=== PATIENT | female | born 1980 | race Caucasian/White ===

== ENCOUNTER → 2017-01-04 | Outpatient (CLI) | payer OTHER ==
[~2017-01-04] MED LIST: AMOX875T PO; DULO-24 PO; TPM/50 PO
== END | disposition home or self-care (01) ==
LOC: C.RDSM 08:00
PROVIDERS: ATTEND Orthopaedic Surgery Sports Medicine
DX: Z09 Encounter for follow-up examination after completed treatment for conditions other than malignant neoplasm (principal); M25.521 Pain in right elbow; M25.511 Pain in right shoulder

== ENCOUNTER → 2017-01-20 | Outpatient (CLI) | payer OTHER ==
--- NOTE | 2017-01-20 15:17 | DIAGNOSTIC IMAGING REPORT ---
RIGHT ELBOW 3 VIEWS HISTORY: F/U RIGHT ELBOW FX Right COMPARISON: None. FINDINGS: No dislocation. Minimally depressed radial head/neck fracture is not significantly changed in alignment. This demonstrates a single small focus of callus formation at the radial neck. There is a persistent joint effusion. No radiopaque foreign bodies. IMPRESSION: Minimal healing associated with the radial head/neck fracture. No significant change in alignment. Electronically signed by: Luis A Juarez M.D. 01/20/2017 3:16 PM Dictated Date/Time: 01/20/2017 3:12 PM
--- NOTE | 2017-01-20 15:21 | DIAGNOSTIC IMAGING REPORT ---
RIGHT WRIST 3 VIEWS CLINICAL HISTORY: Right wrist pain. FINDINGS: 3 views of the right wrist are compared to study dated 12/26/2016. The skeletal structures are well mineralized. No fracture is identified. The joint spaces of the wrist appear maintained. There is mild negative ulnar variance. The overlying soft tissues are within normal limits. IMPRESSION: No right wrist fracture is identified. Electronically signed by: Gilbert Torres M.D. 01/20/2017 3:19 PM Dictated Date/Time: 01/20/2017 3:18 PM
== END | disposition home or self-care (01) ==
LOC: C.RDSM 14:15
PROVIDERS: ATTEND Physician Assistant
DX: S52.124D Nondisplaced fracture of head of right radius, subsequent encounter for closed fracture with routine healing (principal); X58.XXXA Exposure to other specified factors, initial encounter; M25.531 Pain in right wrist

== ENCOUNTER → 2017-02-02 | Outpatient (CLI) | payer OTHER | END | disposition home or self-care (01) | LOC: C.RDSM 08:38 | PROVIDERS: ATTEND Orthopaedic Surgery Sports Medicine | DX: Z09 Encounter for follow-up examination after completed treatment for conditions other than malignant neoplasm (principal); M25.511 Pain in right shoulder ==

== ENCOUNTER 2017-02-13 23:04 | Emergency (ER) | payer OTHER ==
[~2017-02-13] VITALS: Ht 167.6 cm; Wt 109.0 kg
[~2017-02-13 23:04] MED LIST changes: -AMOX875T PO; -DULO-24 PO
[2017-02-13 23:07] VITALS: TEMP 36.7; Ht 167.6 cm; Wt 109.0 kg
[2017-02-13] MEDS ORDERED: KETOROLAC TROMETHAMINE 30 MG/ML VIAL IV STA (23:19)
[2017-02-13] MEDS ORDERED: SODIUM CHLORIDE 0.9% 1000ML 1,000 ML IV STA (23:19)
[2017-02-14] LABS: BASO % 0.9 %; BASO ABS # 0.06 K/uL (0-0.2); COMPLETE YES; EOS % 3.7 %; HEMATOCRIT 41.8 % (37-47); IG% 0.3 %; LYMPH % 37.1 %; MEAN CELL VOLUME 88.9 fL (80-100); MEAN CORPUSCULAR HEMOGLOBIN 30.2 pg (25-34); MEAN PLATELET VOLUME 10.6 fL (7.4-10.4); MONO % 11.8 %; NEUT % 46.2 %; PLATELET COUNT 309 K/uL (130-400); WHITE BLOOD COUNT 7.01 K/uL (4.8-10.8)
--- NOTE | 2017-02-14 00:08 | EMERGENCY ROOM VISIT NOTE ---
History First contact with patient: 23:13 Chief Complaint: ILLNESS Stated Complaint: SUNBURNT,SORE,PEELING W/CHILLS,NAUSEA,HEADACHE History of Present Illness The patient is a 36 year old female who presents to the Emergency Room with complaints of a sunburn. The patient states that one week ago, she was outside in the sun for approximately 7 hours. She reports that she sustained a severe sunburn. She reports she has continued pain and has also had chills and nausea for the past 4 days. She has also had a mild headache. The patient reports a history of migraines but states that this headache is not as severe as migraines. She rates her discomfort a 5/10. She denies any fevers, vomiting, abdominal pain or neck pain. Review of Systems A complete 10 point review of systems was reviewed with the patient with pertinent positives and negatives as per history of present illness. All else were negative. Social History Smoking Status: Never Smoker Current/Historical Medications Scheduled Topiramate (Topamax), 75 MG PO BID Allergies Coded Allergies: Dust (Verified Allergy, Intermediate, ITCHY EYES, RUNNY NOSE, SNEEZING, ) POLLEN (Verified Allergy, Intermediate, ITCHY EYES, RUNNY NOSE, SNEEZING, 02/13/17) Latex1 -Allergic Contact Dermititis (Verified Allergy, Unknown, RASH, 02/13) Physical Exam Vital Signs Date Time Temp Pulse Resp B/P (MAP) Pulse Ox O2 Delivery O2 Flow Rate FiO2 02/14/17 00:59 70 141/91 97 Room Air 02/13/17 23:07 36.7 80 16 160/102 97 Room Air Physical Exam VITALS: Vitals are noted on the nurse's note and reviewed by myself. Vital signs stable. GENERAL: This is a 36-year-old female, in no acute distress, nondiaphoretic, well-developed well-nourished. SKIN: The skin of the arms, chest and legs is erythematous. There are some peeling areas on bilateral arms. There are some small pustules over the chest. HEENT: Normocephalic. PERRLA. EOMI. Nares patent. Mucous membranes moist. Neck is supple without nuchal rigidity. HEART: Regular rate and rhythm without murmurs gallops or rubs. LUNGS: Clear to auscultation bilaterally without wheezes, rales or rhonchi. NEURO: Patient was alert and oriented to person place and time. Medical Decision & Procedures Laboratory Results 02/13/17 23:30 Red Blood Count 4.70, Mean Corpuscular Volume 88.9, Mean Corpuscular Hemoglobin 30.2, Mean Corpuscular Hemoglobin Concent 34.0, Mean Platelet Volume 10.6, Neutrophils (%) (Auto) 46.2, Lymphocytes (%) (Auto) 37.1, Monocytes (%) (Auto) 11.8, Eosinophils (%) (Auto) 3.7, Basophils (%) (Auto) 0.9, Neutrophils # (Auto ) 3.24, Lymphocytes # (Auto) 2.60, Monocytes # (Auto) 0.83, Eosinophils # (Auto ) 0.26, Basophils # (Auto) 0.06 02/13/17 23:30 Test 02/13/17 23:30 02/13/17 23:35 White Blood Count 7.01 K/uL (4.8-10.8) Red Blood Count 4.70 M/uL (4.2-5.4) Hemoglobin 14.2 g/dL (12.0-16.0) Hematocrit 41.8 % (37-47) Mean Corpuscular Volume 88.9 fL (80-100) Mean Corpuscular Hemoglobin 30.2 pg (25-34) Mean Corpuscular Hemoglobin Concent 34.0 g/dl (32-36) Platelet Count 309 K/uL (130-400) Mean Platelet Volume 10.6 fL (7.4-10.4) Neutrophils (%) (Auto) 46.2 % Lymphocytes (%) (Auto) 37.1 % Monocytes (%) (Auto) 11.8 % Eosinophils (%) (Auto) 3.7 % Basophils (%) (Auto) 0.9 % Neutrophils # (Auto) 3.24 K/uL (1.4-6.5) Lymphocytes # (Auto) 2.60 K/uL (1.2-3.4) Monocytes # (Auto) 0.83 K/uL (0.11-0.59) Eosinophils # (Auto) 0.26 K/uL (0-0.5) Basophils # (Auto) 0.06 K/uL (0-0.2) RDW Standard Deviation 44.2 fL (36.4-46.3) RDW Coefficient of Variation 13.4 % (11.5-14.5) Immature Granulocyte % (Auto) 0.3 % Immature Granulocyte # (Auto) 0.02 K/uL (0.00-0.02) Anion Gap 9.0 mmol/L (3-11) Est Creatinine Clear Calc Drug Dose 116.0 ml/min Estimated GFR () 104.4 Estimated GFR (Non- 90.1 BUN/Creatinine Ratio 8.3 (10-20) Calcium Level 8.5 mg/dl (8.5-10.1) Human Chorionic Gonadotropin, Qual NEG (NEG) Medications Administered Medications (Trade) Dose Ordered Sig/Lenore Route Start Time Stop Time Status Last Admin Dose Admin Sodium Chloride 1,000 ml @ 999 mls/hr Q1H1M STAT IV 02/13/17 23:19 02/14/17 00:19 DC 02/13/17 23:33 999 MLS/HR Ketorolac Tromethamine (Toradol Inj) 30 mg NOW STAT IV 02/13/17 23:19 02/13/17 23:20 DC 02/13/17 23:33 30 MG Medical Decision Patient was evaluated. Labs showed no leukocytosis, anemia or concerning electrolyte abnormalities. Kidney function is within normal limits. Patient was hydrated with 1 L normal saline solution and medicated with 30 mg Toradol. She had improvement. I feel her symptoms are likely secondary to her sunburn and dehydration. She was encouraged to stay well hydrated at home and take ibuprofen as needed for symptoms. She verbalized understanding of my assessment and treatment plan and was discharged home in good condition. Impression Primary Impression: Sunburn Departure Information Dispostion Home / Self-Care Condition GOOD Referrals Olga De Paz (PCP) Patient Instructions My [facility] Additional Instructions Ibuprofen, 600-800 mg every 6 hours. Rest and drink plenty of fluids. Follow-up with your primary care provider this week. Return to the emergency department for any worsening or new/concerning symptoms.
[2017-02-14 00:25] LABS: BUN/CREATININE RATIO 8.3 (10-20); CALCIUM 8.5 mg/dl (8.5-10.1); CREATININE 0.83 mg/dl (0.60-1.20); POTASSIUM 3.5 mmol/L (3.5-5.1)
[2017-02-14 00:43] LABS: PREG INTERNAL NEGATIVE QC NEG CLEAR BACKGROUND; PREG INTERNAL POSITIVE QC POS CONTROL LINE
[2017-02-14 00:59] VITALS: BP 141/91; PULSE 70; O2SAT 97
== END 2017-02-14 01:09 | disposition home or self-care (01) ==
LOC: C.EDB 23:04
DX: L55.9 Sunburn, unspecified (principal)

== ENCOUNTER → 2017-03-07 | Outpatient (CLI) | payer OTHER ==
[~2017-03-07] MED LIST changes: +AMOX875T PO; +DULO-24 PO
== END | disposition home or self-care (01) ==
LOC: C.RDSM 10:30
PROVIDERS: ATTEND Orthopaedic Surgery Sports Medicine
DX: S52.124D Nondisplaced fracture of head of right radius, subsequent encounter for closed fracture with routine healing (principal); X58.XXXD Exposure to other specified factors, subsequent encounter

== ENCOUNTER 2017-04-03 14:22 | Emergency (ER) | payer OTHER ==
[~2017-04-03] VITALS: Ht 167.6 cm; Wt 109.7 kg
[~2017-04-03 14:22] MED LIST changes: -AMOX875T PO; -DULO-24 PO
[2017-04-03 14:25] VITALS: TEMP 36.7; Ht 167.6 cm; Wt 109.7 kg
[2017-04-03] MEDS ORDERED: SODIUM CHLORIDE 0.9% 1000ML 1,000 ML IV STA (14:41)
[2017-04-03] MEDS ORDERED: DiphenhydrAMINE HCL 50 MG/ML VIAL IV STA (14:41)
[2017-04-03] MEDS ORDERED: KETOROLAC TROMETHAMINE 30 MG/ML VIAL IV STA (14:41)
[2017-04-03] MEDS ORDERED: PROCHLORPERAZINE 5 MG/ML 2 ML VIAL IV STA (14:41)
--- NOTE | 2017-04-03 14:43 | EMERGENCY ROOM VISIT NOTE ---
History Report prepared by Rogelio: Rex Christie Under the Supervision of: Dr. Derek Miles M.D. First contact with patient: 14:31 Chief Complaint: HEADACHE Stated Complaint: MIGRAINE, NECK PAIN, CHEST PAIN/TIGHT, COUGH History of Present Illness The patient is a 36 year old female who presents to the Emergency Room with complaints of a waxing and waning headache that started 3 weeks ago. She says that these do not feel like her normal migraines, as her migraines are usually on the right side of her face. These current headaches are right behind her eyes and either on her left or right side. She states that the headaches do not completely go away, but they get tolerable at times. The patient says that she has been having neck pain as well. The patient adds that she has been having intermittent fevers between 99 and 101, as well as chest congestion and a cough. She states that she was put on a 3 day course of Decadron by her [facility] neurologist, which she finished yesterday. The patient says that she had an MRI of her head in December, which was normal. She denies any rashes or abdominal pain. The patient notes that she has been bit by ticks in the past, but not recently. She takes Topamax and Cymbalta daily for her migraines, and she has been using an inhaler twice every 6 hours. Source of History: patient Onset: 3 weeks ago Position: head Quality: other (ache) Timing: waxes/wanes Associated Symptoms: + fevers, + cough, + neck pain, No abdominal pain, No rash Note: Associated symptoms: Chest congestion. Review of Systems See HPI for pertinent positives & negatives. A total of 10 systems reviewed and were otherwise negative. Past Medical & Surgical Medical Problems: (1) Migraines Family History No pertinent family history Social History Smoking Status: Never Smoker Marital Status: single Occupation Status: employed Current/Historical Medications Scheduled Amoxicillin & Pot Clavulanate (Augmentin 875-125 mg), 1 TAB PO BID Duloxetine HCl (Cymbalta), 20 MG PO DAILY Topiramate (Topamax), 75 MG PO BID Allergies Coded Allergies: Dust (Verified Allergy, Intermediate, ITCHY EYES, RUNNY NOSE, SNEEZING, ) POLLEN (Verified Allergy, Intermediate, ITCHY EYES, RUNNY NOSE, SNEEZING, 02/13/17) Latex1 -Allergic Contact Dermititis (Verified Allergy, Unknown, RASH, 02/13) Physical Exam Vital Signs Date Time Temp Pulse Resp B/P (MAP) Pulse Ox O2 Delivery O2 Flow Rate FiO2 04/03/17 16:17 66 18 151/100 97 Room Air 04/03/17 14:25 36.7 83 18 139/84 96 Room Air Physical Exam GENERAL: Patient is a healthy-appearing well-nourished 36 year od female HEAD: Normocephalic atraumatic EYES: Ocular movements intact pupils equal and react to light OROPHARYNX mucous membranes are moist no exudates present no erythema or edema present NECK: Supple no nuchal rigidity CHEST: Good equal expansion LUNGS: Clear and equal to auscultation CARDIAC: Normal S1 and S2 ABDOMEN: Soft nontender no guarding BACK: No CVA tenderness EXTREMITIES: No pain upon palpation normal muscle strength in all groups no clubbing cyanosis or edema NEURO: Patient is following commands and answering questions appropriately. Alert and oriented x3 Cranial Nerves 2-12 grossly intact. No evidence of meningitis or encephalitis on exam. Medical Decision & Procedures ER Provider Diagnostic Interpretation: Radiology results as stated below per my review and radiologist interpretation: HEAD WITHOUT CONTRAST (CT) CLINICAL HISTORY: 36 years-old Female with Pt c/o headache. TECHNIQUE: Multiple axial CT images of the head were obtained without contrast. A dose lowering technique was utilized adhering to the principles of ALARA. CT DOSE: 537.48 mGy.cm COMPARISON: CT sinuses 12/26/2014. FINDINGS: No acute intracranial hemorrhage, midline shift, mass, large territorial ischemia or abnormal extra-axial collection. The calvarium is intact. The paranasal sinuses, mastoid air cells, and middle ear cavities are clear. IMPRESSION: No acute intracranial abnormality. The above report was generated using voice recognition software. It may contain grammatical, syntax or spelling errors. Electronically signed by: Evgeny Velasquez M.D. 04/03/2017 3:25 PM Dictated Date/Time: 04/03/2017 3:23 PM CHEST ONE VIEW PORTABLE HISTORY: 36 years-old Female Pt c/o cough COMPARISON: Chest radiograph 06/01/2015 TECHNIQUE: Portable upright AP view of the chest FINDINGS: The mediastinal and hilar silhouettes are within normal limits. There is no pneumothorax, pleural effusion, overt pulmonary edema or focal airspace consolidation. The bones appear to be grossly intact. IMPRESSION: Normal chest radiograph. The above report was generated using voice recognition software. It may contain grammatical, syntax or spelling errors. Electronically signed by: Evgeny Velasquez M.D. 04/03/2017 2:58 PM Dictated Date/Time: 04/03/2017 2:57 PM Laboratory Results 04/03/17 15:09 Red Blood Count 5.06, Mean Corpuscular Volume 89.3, Mean Corpuscular Hemoglobin 29.2, Mean Corpuscular Hemoglobin Concent 32.7, Mean Platelet Volume 10.8, Neutrophils (%) (Auto) 79.5, Lymphocytes (%) (Auto) 12.0, Monocytes (%) (Auto) 7.7, Eosinophils (%) (Auto) 0.0, Basophils (%) (Auto) 0.1, Neutrophils # (Auto) 9.45, Lymphocytes # (Auto) 1.42, Monocytes # (Auto) 0.92, Eosinophils # (Auto) 0.00, Basophils # (Auto) 0.01 04/03/17 15:09 Test 04/03/17 15:05 04/03/17 15:09 Lyme Disease IgG Antibody NEG (NEG) White Blood Count 11.88 K/uL (4.8-10.8) Red Blood Count 5.06 M/uL (4.2-5.4) Hemoglobin 14.8 g/dL (12.0-16.0) Hematocrit 45.2 % (37-47) Mean Corpuscular Volume 89.3 fL (80-100) Mean Corpuscular Hemoglobin 29.2 pg (25-34) Mean Corpuscular Hemoglobin Concent 32.7 g/dl (32-36) Platelet Count 320 K/uL (130-400) Mean Platelet Volume 10.8 fL (7.4-10.4) Neutrophils (%) (Auto) 79.5 % Lymphocytes (%) (Auto) 12.0 % Monocytes (%) (Auto) 7.7 % Eosinophils (%) (Auto) 0.0 % Basophils (%) (Auto) 0.1 % Neutrophils # (Auto) 9.45 K/uL (1.4-6.5) Lymphocytes # (Auto) 1.42 K/uL (1.2-3.4) Monocytes # (Auto) 0.92 K/uL (0.11-0.59) Eosinophils # (Auto) 0.00 K/uL (0-0.5) Basophils # (Auto) 0.01 K/uL (0-0.2) RDW Standard Deviation 44.6 fL (36.4-46.3) RDW Coefficient of Variation 13.8 % (11.5-14.5) Immature Granulocyte % (Auto) 0.7 % Immature Granulocyte # (Auto) 0.08 K/uL (0.00-0.02) Anion Gap 8.0 mmol/L (3-11) Est Creatinine Clear Calc Drug Dose 80.5 ml/min Estimated GFR () 66.9 Estimated GFR (Non- 57.7 BUN/Creatinine Ratio 16.1 (10-20) Calcium Level 8.9 mg/dl (8.5-10.1) Total Bilirubin 0.4 mg/dl (0.2-1) Direct Bilirubin < 0.1 mg/dl (0-0.2) Aspartate Amino Transf (AST/SGOT) 25 U/L (15-37) Alanine Aminotransferase (ALT/SGPT) 47 U/L (12-78) Alkaline Phosphatase 63 U/L (45-117) Total Protein 7.3 gm/dl (6.4-8.2) Albumin 3.6 gm/dl (3.4-5.0) Lipase 184 U/L (73-393) Labs reviewed by ED physician. Medications Administered Medications (Trade) Dose Ordered Sig/Lenore Route Start Time Stop Time Status Last Admin Dose Admin Sodium Chloride 1,000 ml @ 999 mls/hr Q1H1M STAT IV 04/03/17 14:41 04/03/17 15:41 DC 04/03/17 15:04 999 MLS/HR Ketorolac Tromethamine (Toradol Inj) 30 mg NOW STAT IV 04/03/17 14:41 04/03/17 14:44 DC 04/03/17 15:05 30 MG Prochlorperazine Edisylate (Compazine Inj) 10 mg NOW STAT IV 04/03/17 14:41 04/03/17 14:44 DC 04/03/17 15:04 10 MG Diphenhydramine HCl (Benadryl Inj) 50 mg NOW STAT IV 04/03/17 14:41 04/03/17 14:44 DC 04/03/17 15:05 50 MG Amoxicillin/ Clavulanate Potassium (Augmentin Tab) 875 mg ONE ONCE PO 04/03/17 14:45 04/03/17 14:46 DC 04/03/17 15:05 875 MG Dexamethasone Sodium Phosphate (Decadron Inj) 10 mg NOW ONCE IV 04/03/17 16:00 04/03/17 16:01 DC 04/03/17 16:23 10 MG ED Course 1434: Past medical records reviewed. The patient was evaluated in room A3. A complete history and physical examination was performed. 1441: Ordered Benadryl Inj 50 mg IV, Compazine Inj 10 mg IV, Toradol Inj 30 mg IV, NSS 1000 ml @ 999 mls/hr IV. 1445: Ordered Augmentin Tab 875 mg PO. 1554: Upon reexamination the patient is resting. I discussed results and treatment plan with the patient. she verbalizes agreement and understanding. The patient is ready for discharge. 1600: Ordered Decadron Inj 10 mg IV. Medical Decision Differential diagnosis: Intracranial hemorrhage, intracranial mass, migraine headache, tension headache , sinusitis, meningitis This is a 36-year-old female who presents to emergency department complaining of multiple complaints. The patient is complaining of the a headache along with chest pain that appears to be positional in nature. I will note that the patient has a normal EKG as a normal CK-MB and troponin fraction. An IV was established, the patient given normal saline bolus, Compazine, Benadryl. She also appears to have ringworm on her right lower extremity. I will treat this with an antifungal medication. Medication Reconcilliation Current Medication List: was personally reviewed by me Blood Pressure Screening Patient's blood pressure: Elevated blood pressure Blood pressure disposition: Elevated BP felt to be situational Impression Primary Impression: Sinusitis Additional Impression: Headache Scribe Attestation The scribe's documentation has been prepared under my direction and personally reviewed by me in its entirety. I confirm that the note above accurately reflects all work, treatment, procedures, and medical decision making performed by me. Departure Information Dispostion Home / Self-Care Prescriptions Amoxicillin & Pot Clavulanate (Augmentin 875-125 mg) 1 Tab Tab 1 TAB PO BID for 10 Days, #20 TAB Prov: Derek Miles MD 04/03/17 Referrals Olga De Paz (PCP) Forms HOME CARE DOCUMENTATION FORM, IMPORTANT VISIT INFORMATION, School Instructions, Work Instructions Patient Instructions ED Sinusitis Abx Heike Doss [facility] Additional Instructions Return for LP if you develop severe headache, neck pain and or fevers You were found to have an elevated blood pressure today (>120 sytolic or >90 diastolic). Per medicare guidelines, you need to follow up with this blood pressure screening with your Primary Care Physician (PCP). For a new PCP call [phone]. You have been examined and treated today on an emergency basis only. This is not a substitute for, or an effort to provide, complete comprehensive medical care. It is impossible to recognize and treat all injuries or illnesses in a single emergency department visit. It is therefore important that you follow up closely with your PCP. Call as soon as possible for an appointment. Thank you for your time and consideration. I look forward to speaking with you again soon. Please don't hesitate to call us if you have any questions. Problem Qualifiers Primary Impression: Sinusitis Sinusitis location: unspecified location Chronicity: unspecified Qualified Codes: J32.9 - Chronic sinusitis, unspecified Additional Impression: Headache Headache type: unspecified Headache chronicity pattern: unspecified pattern Intractability: not intractable Qualified Codes: R51 - Headache
[2017-04-03] MEDS ORDERED: DULO-24 PO (14:44)
[2017-04-03] MEDS ORDERED: AMOXICILLIN/CLAVULANATE TAB 875 MG TAB PO ONE (14:45)
--- NOTE | 2017-04-03 14:59 | DIAGNOSTIC IMAGING REPORT ---
CHEST ONE VIEW PORTABLE HISTORY: 36 years-old Female Pt c/o cough COMPARISON: Chest radiograph 06/01/2015 TECHNIQUE: Portable upright AP view of the chest FINDINGS: The mediastinal and hilar silhouettes are within normal limits. There is no pneumothorax, pleural effusion, overt pulmonary edema or focal airspace consolidation. The bones appear to be grossly intact. IMPRESSION: Normal chest radiograph. The above report was generated using voice recognition software. It may contain grammatical, syntax or spelling errors. Electronically signed by: Evgeny Velasquez M.D. 04/03/2017 2:58 PM Dictated Date/Time: 04/03/2017 2:57 PM
[2017-04-03 15:15] LABS: BASO % 0.1 %; BASO ABS # 0.01 K/uL (0-0.2); COMPLETE YES; HEMATOCRIT 45.2 % (37-47); IG% 0.7 %; LYMPH ABS # 1.42 K/uL (1.2-3.4); MEAN CELL VOLUME 89.3 fL (80-100); MEAN CORPUSCULAR HEMOGLOBIN 29.2 pg (25-34); MEAN CORPUSCULAR HGB CONC 32.7 g/dl (32-36); MEAN PLATELET VOLUME 10.8 fL (7.4-10.4); MONO % 7.7 %; NEUT % 79.5 %; PLATELET COUNT 320 K/uL (130-400); RED BLOOD COUNT 5.06 M/uL (4.2-5.4); WHITE BLOOD COUNT 11.88 K/uL (4.8-10.8)
--- NOTE | 2017-04-03 15:26 | DIAGNOSTIC IMAGING REPORT ---
HEAD WITHOUT CONTRAST (CT) CLINICAL HISTORY: 36 years-old Female with Pt c/o headache. TECHNIQUE: Multiple axial CT images of the head were obtained without contrast. A dose lowering technique was utilized adhering to the principles of ALARA. CT DOSE: 537.48 mGy.cm COMPARISON: CT sinuses 12/26/2014. FINDINGS: No acute intracranial hemorrhage, midline shift, mass, large territorial ischemia or abnormal extra-axial collection. The calvarium is intact. The paranasal sinuses, mastoid air cells, and middle ear cavities are clear. IMPRESSION: No acute intracranial abnormality. The above report was generated using voice recognition software. It may contain grammatical, syntax or spelling errors. Electronically signed by: Evgeny Velasquez M.D. 04/03/2017 3:25 PM Dictated Date/Time: 04/03/2017 3:23 PM
[2017-04-03 15:35] LABS: ALT/SGPT 47 U/L (12-78); AST/SGOT 25 U/L (15-37); BLOOD UREA NITROGEN 19 mg/dl (7-18); BUN/CREATININE RATIO 16.1 (10-20); CALCIUM 8.9 mg/dl (8.5-10.1); CARBON DIOXIDE 26 mmol/L (21-32); CHLORIDE 109 mmol/L (98-107); GLUCOSE 104 mg/dl (70-99); SODIUM 143 mmol/L (136-145)
[2017-04-03 15:38] LABS: ALKALINE PHOSPHATASE 63 U/L (45-117)
[2017-04-03] MEDS ORDERED: AMOX875T PO (15:53)
[2017-04-03] MEDS ORDERED: DEXAMETHASONE SOD INJ 10 MG/ML VIAL IV ONE (16:00)
[2017-04-03 16:17] VITALS: BP 151/100; PULSE 66; O2SAT 97
[2017-04-03 16:43] LABS: LYME DISEASE AB IGG NEG (NEG)
[2017-04-03 16:46] LABS: LYME DISEASE AB IGM EQUIVOCAL (NEG)
[2017-04-08 03:12] LABS: 18KDIGG BAND NONREACTIVE (NONREACTIVE); 23KDIGG BAND REACTIVE (NONREACTIVE); 23KDIGM BAND REACTIVE (NONREACTIVE); 28KDIGG BAND NONREACTIVE (NONREACTIVE); 30KDIGG BAND NONREACTIVE (NONREACTIVE); 39KDIGG BAND NONREACTIVE (NONREACTIVE); 39KDIGM BAND NONREACTIVE (NONREACTIVE); 41KDIGG BAND NONREACTIVE (NONREACTIVE); 41KDIGM BAND REACTIVE (NONREACTIVE); 45KDIGG BAND NONREACTIVE (NONREACTIVE); 58KDIGG BAND NONREACTIVE (NONREACTIVE); 66KDIGG BAND NONREACTIVE (NONREACTIVE); 93KDIGG BAND NONREACTIVE (NONREACTIVE)
[2017-04-12 23:30] LABS: EHRLICHIA CHAFF IGG AB <1:64 (<1:64); EHRLICHIA CHAFF IGM AB <1:20 (<1:20)
== END 2017-04-03 16:37 | disposition home or self-care (01) ==
LOC: C.EDB 14:23 → C.EDA 16:37
DX: J32.9 Chronic sinusitis, unspecified (principal); R51 Headache; M54.2 Cervicalgia; Z79.899 Other long term (current) drug therapy; B35.9 Dermatophytosis, unspecified

== ENCOUNTER → 2017-04-18 | Outpatient (CLI) | payer OTHER ==
[~2017-04-18] MED LIST changes: +DULO-24 PO
== END | disposition home or self-care (01) ==
LOC: C.RDSM 14:52
PROVIDERS: ATTEND Orthopaedic Surgery Sports Medicine
DX: Z09 Encounter for follow-up examination after completed treatment for conditions other than malignant neoplasm (principal)

== ENCOUNTER → 2017-05-10 | Outpatient (CLI) | payer OTHER ==
--- NOTE | 2017-05-10 10:14 | DIAGNOSTIC IMAGING REPORT ---
LEFT UPPER QUADRANT ULTRASOUND CLINICAL HISTORY: Left upper quadrant abdominal pain, fatigue, Lyme's disease. Carbon. COMPARISON STUDY: No previous studies for comparison. FINDINGS: The spleen measures 9.3 cm in length. No splenic masses are visualized. The left kidney measures 10.9 x 6.3 x 6.2 cm. No renal masses are visualized. There is no hydronephrosis. IMPRESSION: Normal ultrasound of the spleen and left kidney. Electronically signed by: Imtiza Rogers M.D. 05/10/2017 10:12 AM Dictated Date/Time: 05/10/2017 10:11 AM
== END | disposition home or self-care (01) ==
LOC: C.ULTR 09:25
PROVIDERS: ATTEND Nurse Practitioner Family
DX: R10.12 Left upper quadrant pain (principal); B27.00 Gammaherpesviral mononucleosis without complication; R53.83 Other fatigue; Z86.19 Personal history of other infectious and parasitic diseases

== ENCOUNTER 2017-08-11 20:13 | Emergency (ER) | payer OTHER ==
[~2017-08-11] VITALS: Ht 167.6 cm; Wt 113.1 kg
[2017-08-11 20:16] VITALS: TEMP 36.7; Ht 167.6 cm; Wt 113.1 kg
[2017-08-11] MEDS ORDERED: ALBUT/IPRATROP 3MG/0.5MG NEB 3 ML VIAL INH STA (20:33)
[2017-08-11] MEDS ORDERED: METHYLPREDNISOLONE 125 MG VIAL IV STA (20:33)
--- NOTE | 2017-08-11 20:52 | DIAGNOSTIC IMAGING REPORT ---
CHEST ONE VIEW PORTABLE CLINICAL HISTORY: 36 years-old Female presenting with sob. TECHNIQUE: Portable upright AP view of the chest was obtained. COMPARISON: 04/03/2017. FINDINGS: Cardiomediastinal silhouette normal. Lungs and pleural spaces clear. Osseous structures normal. Upper abdomen normal. IMPRESSION: 1. No acute cardiopulmonary disease. Electronically signed by: Clem Melvin M.D. 08/11/2017 8:51 PM Dictated Date/Time: 08/11/2017 8:50 PM
[2017-08-11] MEDS ORDERED: CHOL20007 PO (21:01)
[2017-08-11] MEDS ORDERED: ERGO500037 PO (21:01)
[2017-08-11] MEDS ORDERED: GUAI1TAB55 PO (21:01)
[2017-08-11 21:32] LABS: ISTAT HEMOGLOBIN 14.6 g/dl (12.0-16.0); ISTAT IONIZED CALCIUM 1.22 mmol/l (1.12-1.32)
[2017-08-11] MEDS ORDERED: AZITTAB PO (21:49)
[2017-08-11] MEDS ORDERED: AZITHROMYCIN 250 MG TAB PO STA (21:49)
[2017-08-11] MEDS ORDERED: PRED20TA PO (21:49)
--- NOTE | 2017-08-11 21:49 | EMERGENCY ROOM VISIT NOTE ---
History Report prepared by Rogelio: Ned Núñez Under the Supervision of: Dom SarabiaO. First contact with patient: 20:18 Chief Complaint: RESPIRATORY PROBLEMS Stated Complaint: SOB,FELL LIKE GOING TO PASS OUT,CHEST PAINS History of Present Illness The patient is a 36 year old female who presents to the Emergency Room with complaints of worsening shortness of breath for the past two days. The patient notes that she has a cold, and this is worsening her asthma. She additionally is complaining of a fever, and she has been coughing. She notes that she has been using an inhaler and a nebulizer. The patient denies any leg pain or leg swelling. Source of History: patient Onset: two days ago Position: other (global) Quality: other (shortness of breath) Timing: worsening Associated Symptoms: + fevers, + cough Review of Systems See HPI for pertinent positives & negatives. A total of 10 systems reviewed and were otherwise negative. Past Medical & Surgical Medical Problems: (1) Migraines Family History No pertinent family history Social History Smoking Status: Never Smoker Marital Status: single Occupation Status: employed Current/Historical Medications Scheduled Azithromycin (Zithromax Z-Lalo), 0 PO UD Cholecalciferol (Vitamin D3), 1 TAB PO DAILY Ergocalciferol (Vitamin D 06303 Unit), 50,000 UNIT PO WK Guaifenesin Ext Rel (Mucinex Ext Rel), 600 MG PO Q12 Prednisone (Prednisone), 2 TAB PO DAILY Allergies Coded Allergies: Dust (Verified Allergy, Intermediate, ITCHY EYES, RUNNY NOSE, SNEEZING, ) POLLEN (Verified Allergy, Intermediate, ITCHY EYES, RUNNY NOSE, SNEEZING, 02/13/17) Latex1 -Allergic Contact Dermititis (Verified Allergy, Unknown, RASH, 02/13) Physical Exam Vital Signs Date Time Temp Pulse Resp B/P (MAP) Pulse Ox O2 Delivery O2 Flow Rate FiO2 08/11/17 20:20 Room Air 08/11/17 20:16 36.7 104 26 168/91 96 Room Air Physical Exam CONSTITUTIONAL/VITAL SIGNS: Reviewed / noted above. GENERAL: Non-toxic in appearance. INTEGUMENTARY: Warm, dry, and [place]. HEAD: Normocephalic. EYES: without scleral icterus or trauma. ENT/OROPHARYNX: clear and moist. LYMPHADENOPATHY/NECK: Is supple without lymphadenopathy or meningismus. RESPIRATORY: Lungs clear and equal. CARDIOVASCULAR: Regular rate and rhythm. GI/ABDOMEN: Soft and nontender. No organomegaly or pulsatile mass. No rebound or guarding. Normal bowel sounds. EXTREMITIES: Warm and well perfused. BACK: No CVA tenderness. NEUROLOGICAL: Intact without focal deficits. PSYCHIATRIC: normal affect. MUSCULOSKELETAL: Normally developed with good muscle tone. Medical Decision & Procedures ER Provider Diagnostic Interpretation: Radiology results as stated below per my review and radiologist interpretation: CHEST ONE VIEW PORTABLE CLINICAL HISTORY: 36 years-old Female presenting with sob. TECHNIQUE: Portable upright AP view of the chest was obtained. COMPARISON: 04/03/2017. FINDINGS: Cardiomediastinal silhouette normal. Lungs and pleural spaces clear. Osseous structures normal. Upper abdomen normal. IMPRESSION: 1. No acute cardiopulmonary disease. Electronically signed by: Clem Melvin M.D. 08/11/2017 8:51 PM Dictated Date/Time: 08/11/2017 8:50 PM Laboratory Results Test 08/11/17 21:07 08/11/17 21:11 Bedside D-Dimer 418 ng/mlFEU (0-450) Bedside Hemoglobin 14.6 g/dl (12.0-16.0) Bedside Hematocrit 43 % (37-47) Bedside Sodium 142 mEq/L (135-144) Bedside Potassium 3.6 mEq/L (3.3-5.0) Bedside Chloride 107 mEq/L (101-112) Bedside Total CO2 20 mEq/l (24-31) Anion Gap 19.0 mmol/L (16-25) Bedside Blood Urea Nitrogen 10 mg/dl (7-18) Bedside Creatinine 1.0 mg/dl (0.6-1.3) Bedside Glucose (other) 96 mg/dl (70-99) Bedside Ionized Calcium (Manpreet) 1.22 mmol/l (1.12-1.32) Laboratory results as stated above per my review. Medications Administered Medications (Trade) Dose Ordered Sig/Lenore Route Start Time Stop Time Status Last Admin Dose Admin Albuterol/ Ipratropium (Duoneb) 3 ml NOW STAT INH 08/11/17 20:33 08/11/17 20:38 DC 08/11/17 21:25 3 ML Methylprednisolone Sodium Succinate (Solu-Medrol IV) 125 mg NOW STAT IV 08/11/17 20:33 12/15/17 20:38 DC 08/11/17 21:25 125 MG ECG Indication: SOB/dyspnea Rate (beats per minute): 83 Rhythm: normal sinus Findings: no ectopy, other (No acute injury) ED Course 2028: Previous medical records were reviewed. The patient was evaluated in room B8. A complete history and physical examination was performed. 2032: Solu-Medrol 125mg IV, DuoNeb 3ml INH 2149: On reevaluation, the patient is doing well. I discussed the results and findings with the patient. She verbalized agreement of the treatment plan. She was discharged home. Medical Decision Differentials considered include acute myocardial infarction, acute coronary syndrome, myocarditis, pericarditis, pericardial effusions /tamponade, esophageal perforation, pulmonary embolism, pneumonia, pneumothorax, cardiomyopathy, congestive heart, anemia, and COPD/asthma exacerbation. This is a 36-year-old female who presents to the ED with a chief complaint of shortness of breath. She states that she has had some cold symptoms for the past 2 days. She reports a past history of asthma. She has been using her inhalers and nebulizers at home. She reports subjective fevers. Her initial blood pressure here was elevated. Her physical exam was normal. The lungs are clear. She does not appear to be in any respiratory distress. She may be somewhat anxious. EKG shows a normal sinus rhythm at a rate of 82. D-dimer was negative. Hemoglobin is normal. PRP was unremarkable. The patient was treated with IV site Medrol and a nebulizer treatment. She was discharged on prednisone and Zithromax. Medication Reconcilliation Current Medication List: was personally reviewed by me Blood Pressure Screening Patient's blood pressure: Elevated blood pressure Blood pressure disposition: Referred to PCP Impression Primary Impression: Acute bronchitis Scribe Attestation The scribe's documentation has been prepared under my direction and personally reviewed by me in its entirety. I confirm that the note above accurately reflects all work, treatment, procedures, and medical decision making performed by me. Departure Information Dispostion Home / Self-Care Prescriptions Prednisone (Prednisone) 20 Mg Tab 2 TAB PO DAILY for 3 Days, #6 TAB Prov: Derek Morales D.O. 08/11/17 Azithromycin (ZITHROMAX Z-LALO) 250 Mg Tab 0 PO UD, #1 PKT 2 TABS DAY 1, THEN 1 TAB DAILY FOR 4 DAYS Prov: Derek Morales D.O. 08/11/17 Referrals Olga De Paz (PCP) Forms HOME CARE DOCUMENTATION FORM, IMPORTANT VISIT INFORMATION, WORK / SCHOOL INSTRUCTIONS Patient Instructions [facility] Additional Instructions Prednisone and Zithromax as prescribed. Follow-up with your doctor for further care and evaluation in 1-2 days. Return to the emergency department for worsening or new symptoms or any concerns. You have been examined and treated today on an emergency basis only. This is not a substitute for, or an effort to provide, complete comprehensive medical care. It is impossible to recognize and treat all injuries or illnesses in a single emergency department visit. It is therefore important that you follow up closely with your doctor. Call as soon as possible for an appointment.
[2017-08-11 22:11] VITALS: BP 148/82; PULSE 89; O2SAT 98
== END 2017-08-11 22:16 | disposition home or self-care (01) ==
LOC: C.EDB 20:15
DX: J20.9 Acute bronchitis, unspecified (principal)

== ENCOUNTER 2017-09-07 19:24 | Emergency (ER) | payer OTHER ==
[~2017-09-07] VITALS: Ht 167.6 cm; Wt 114.0 kg
[~2017-09-07 19:24] MED LIST changes: +CHOL20007 PO; -DULO-24 PO; +ERGO500037 PO; +GUAI1TAB55 PO; -TPM/50 PO
[2017-09-07 19:28] VITALS: TEMP 36.6; Ht 167.6 cm; Wt 114.0 kg
[2017-09-07] MEDS ORDERED: HYDROCODONE/ACETAMINOPHEN 7.5/325MG TAB PO STA (20:17)
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
[2017-09-07] MEDS ORDERED: CYM/30 PO (20:38)
--- NOTE | 2017-09-07 21:11 | DIAGNOSTIC IMAGING REPORT ---
CHEST 2 VIEWS ROUTINE CLINICAL HISTORY: trauma COMPARISON STUDY: No previous studies for comparison. FINDINGS: The bones soft tissues and hemidiaphragms are normal. The cardiomediastinal silhouette is normal. The lungs are clear. The pulmonary vasculature is normal. IMPRESSION: Negative chest. The above report was generated using voice recognition software. It may contain grammatical, syntax or spelling errors. Electronically signed by: Hank Parry M.D. 09/07/2017 9:10 PM Dictated Date/Time: 09/07/2017 9:10 PM
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
[2017-09-07 22:20] VITALS: BP 137/92; PULSE 87; O2SAT 97
== END 2017-09-07 22:18 | disposition home or self-care (01) ==
LOC: EDBD 19:24 → C.EDB 19:25
DX: S16.1XXA Strain of muscle, fascia and tendon at neck level, initial encounter (principal); S50.12XA Contusion of left forearm, initial encounter; V40.5XXA Car driver injured in collision with pedestrian or animal in traffic accident, initial encounter; J45.909 Unspecified asthma, uncomplicated; E66.9 Obesity, unspecified; Z68.41 Body mass index [BMI] 40.0-44.9, adult; M79.7 Fibromyalgia; Z79.899 Other long term (current) drug therapy

== ENCOUNTER 2017-11-16 10:47 | Emergency (ER) | payer OTHER ==
[~2017-11-16] VITALS: Ht 167.6 cm; Wt 115.5 kg
[~2017-11-16 10:47] MED LIST changes: +CYM/30 PO; -GUAI1TAB55 PO
[2017-11-16 11:09] VITALS: TEMP 37.1; Ht 167.6 cm; Wt 115.5 kg
[2017-11-16] MEDS ORDERED: SODIUM CHLORIDE 0.9% 1000ML 1,000 ML IV STA (11:27)
[2017-11-16] MEDS ORDERED: ONDANSETRON INJ 2 MG/ML 2 ML VIAL IV STA (11:27)
[2017-11-16] MEDS ORDERED: KETOROLAC TROMETHAMINE 30 MG/ML VIAL IV STA (11:27)
[2017-11-16] MEDS ORDERED: DULO60CA44 PO (11:37)
[2017-11-16 11:45] LABS: BASO % 0.6 %; BASO ABS # 0.03 K/uL (0-0.2); EOS % 5.8 %; EOS ABS # 0.31 K/uL (0-0.5); HEMATOCRIT 43.9 % (37-47); IG# 0.01 K/uL (0.00-0.02); LYMPH % 34.2 %; LYMPH ABS # 1.83 K/uL (1.2-3.4); MEAN CORPUSCULAR HEMOGLOBIN 30.1 pg (25-34); MEAN CORPUSCULAR HGB CONC 34.2 g/dl (32-36); MEAN PLATELET VOLUME 9.9 fL (7.4-10.4); MONO % 14.8 %; MONO ABS # 0.79 K/uL (0.11-0.59); NEUT % 44.4 %; NEUT ABS # 2.38 K/uL (1.4-6.5); PLATELET COUNT 264 K/uL (130-400); RED CELL DISTRIBUTION WIDTH CV 13.7 % (11.5-14.5); WHITE BLOOD COUNT 5.35 K/uL (4.8-10.8)
[2017-11-16 11:57] LABS: ALBUMIN 3.7 gm/dl (3.4-5.0); ALT/SGPT 29 U/L (12-78); AST/SGOT 20 U/L (15-37); BLOOD UREA NITROGEN 12 mg/dl (7-18); CALCIUM 8.8 mg/dl (8.5-10.1); CARBON DIOXIDE 24 mmol/L (21-32); CREATININE 0.75 mg/dl (0.60-1.20); GLUCOSE 86 mg/dl (70-99); LIPASE 155 U/L (73-393); POTASSIUM 4.1 mmol/L (3.5-5.1); SODIUM 137 mmol/L (136-145)
[2017-11-16 12:00] LABS: ALKALINE PHOSPHATASE 54 U/L (45-117); TOTAL PROTEIN 7.7 gm/dl (6.4-8.2)
--- NOTE | 2017-11-16 12:09 | DIAGNOSTIC IMAGING REPORT ---
ABD/PELVIS WITHOUT FOR STONE CLINICAL HISTORY: 37 years-old Female presenting with EVALUATE FLANK PAIN/HEMATURIA. TECHNIQUE: Multidetector CT of the abdomen and pelvis was performed without the use of intravenous contrast. IV contrast: None. A dose lowering technique was used consistent with the principles of ALARA (as low as reasonably achievable). COMPARISON: 03/09/2010. CT DOSE (mGy.cm): The estimated cumulative dose is 1599.67 mGy.cm. FINDINGS: Weight And Test Bar Clerk topogram: Unremarkable. Lung bases: Minimal basilar opacities, likely atelectasis. Normal heart size. No pericardial or pleural effusion. Liver: Normal morphology. Density consistent with hepatic steatosis. Biliary: No gross biliary ductal dilatation allowing for noncontrast technique. Normal gallbladder. Pancreas: Normal noncontrast appearance. Spleen: Normal noncontrast appearance. Adrenal glands: Normal noncontrast appearance. Kidneys and ureters: Normal noncontrast appearance. No nephrolithiasis. No hydronephrosis. Normal ureters. Bladder: Normal. Pelvic organs: Uterus surgically absent. No adnexal masses. Bowel: Limited diverticulosis of the proximal sigmoid colon. Few scattered colonic diverticula noted elsewhere. Mild stool burden throughout normal caliber colon. The appendix is normal. No bowel obstruction. Hyperdense linear opacity in the gastric lumen likely represents medication administration. Peritoneal cavity: No free fluid or intraperitoneal gas. Lymph nodes: No gross lymphadenopathy allowing for noncontrast technique. Vasculature: Normal noncontrast appearance. Abdominal wall: Normal. Musculoskeletal: Normal. IMPRESSION: 1. No acute intra-abdominal pathology. Electronically signed by: Clem Melvin M.D. 11/16/2017 12:08 PM Dictated Date/Time: 11/16/2017 11:58 AM
[2017-11-16] MEDS ORDERED: KETO10TA PO (13:16)
[2017-11-16 13:27] VITALS: BP 169/100; PULSE 97; O2SAT 100
--- NOTE | 2017-11-17 12:40 | EMERGENCY ROOM VISIT NOTE ---
ED Visit Note First contact with patient: 11:13 Chief Complaint: Left flank pain. History of Present Illness: Ms. Desouza is a 37 year-old white female who ambulates into the ED complaining of left flank pain. Historically patient reports history of pyelonephritis and when a CT was done at that time she was told she had nephrolithiasis. Patient reports a gradual onset of left flank pain that started 2 weeks ago. Since that time the pain has been present but has waxed and waned in intensity. The pain is currently described "like something is under my skin"; reports a similar sensation with splenomegaly related to mononucleosis, and intermittently sharp. The pain is radiating into the left upper quadrant. The pain worsens with movements of the thoracic spine and rolling onto the left flank. Her pain worsens when she is sitting quietly and sitting upright. She reports she has been using Aleve with minimal relief of her discomfort. Associated with her pain she reports she has been having chills but no marya fever, and a mild decrease in appetite. She denies any recent direct or repetitive trauma. She also denies any previous significant injuries or surgeries of the thoracic spine. Patient denies sweats, skin eruptions, skin color changes, upper respiratory tract symptoms, shortness of breath, chest pain, nausea, vomiting, diarrhea, constipation, rectal bleeding, black/tarry stools, urinary symptoms, hematuria, vaginal bleeding, vaginal discharge. Review of Systems: As noted above in history of present illness. All body systems were reviewed and found to be negative as noted above. Past Medical History: As noted above, asthma, bronchitis, pneumonia, fibromyalgia, status post hysterectomy and unspecified wrist and knee surgery. Current Medications: Multivitamins, Cymbalta. Allergies to Medications: Latex. Social History: Patient is currently employed; she feels safe in her home environment; she denies tobacco use and admits to social alcohol use. Physical Examination: Vital Signs: Date Time Temp Pulse Resp B/P (MAP) Pulse Ox O2 Delivery O2 Flow Rate FiO2 11/16/17 13:27 97 20 169/100 100 11/16/17 12:33 85 16 152/98 97 Room Air 11/16/17 11:09 37.1 104 18 142/101 97 Room Air GENERAL: 37-year-old female in mild distress due to pain, nontoxic-appearing, afebrile and hemodynamically stable. NEUROLOGICAL: Awake, alert and oriented to person, place and time. Answering questions appropriately and following commands. Normal gait. Good hand eye coordination. SKIN: Warm, dry and pink. No soft tissue eruptions or trauma noted. HEENT: Atraumatic and normocephalic. PERRLA. Sclera white and conjunctiva pink. Oral cavity moist and pink. Pharynx is nonerythematous or edematous. Speech normal. No lymphadenopathy. Trachea midline. No jugular venous distention. BACK: No tenderness over the bony cervical, thoracic and lumbar spine. Mild tenderness in the paraspinous musculature of the thoracic spine left lateral to the bony spine. Minimal CVA tenderness. THORAX: Lungs sounds are clear to auscultation and equal bilaterally with symmetrical chest wall. No wheezing, rales or rhonchi. No crepitus, tenderness , subcutaneous air or deformities noted. HEART: Regular rate and rhythm. No gallops, rubs or murmurs are appreciated. ABDOMEN: Flat, soft and nontender. Positive bowel sounds in all quadrants. No guarding, rigidity or organomegaly. EXTREMITIES: Moves all extremities well on command and with purpose. All distal neurovascular statuses are intact and equal bilaterally. ED Course: Patient is assessed as noted above. Laboratory Testing: Test 11/16/17 11:30 11/16/17 12:45 Range/Units White Blood Count 5.35 4.8-10.8 K/uL Red Blood Count 4.99 4.2-5.4 M/uL Hemoglobin 15.0 12.0-16.0 g/dL Hematocrit 43.9 37-47 % Mean Corpuscular Volume 88.0 80-100 fL Mean Corpuscular Hemoglobin 30.1 25-34 pg Mean Corpuscular Hemoglobin Concent 34.2 32-36 g/dl Platelet Count 264 130-400 K/uL Mean Platelet Volume 9.9 7.4-10.4 fL Neutrophils (%) (Auto) 44.4 % Lymphocytes (%) (Auto) 34.2 % Monocytes (%) (Auto) 14.8 % Eosinophils (%) (Auto) 5.8 % Basophils (%) (Auto) 0.6 % Neutrophils # (Auto) 2.38 1.4-6.5 K/uL Lymphocytes # (Auto) 1.83 1.2-3.4 K/uL Monocytes # (Auto) 0.79 0.11-0.59 K/uL Eosinophils # (Auto) 0.31 0-0.5 K/uL Basophils # (Auto) 0.03 0-0.2 K/uL RDW Standard Deviation 44.0 36.4-46.3 fL RDW Coefficient of Variation 13.7 11.5-14.5 % Immature Granulocyte % (Auto) 0.2 % Immature Granulocyte # (Auto) 0.01 0.00-0.02 K/uL Sodium Level 137 136-145 mmol/L Potassium Level 4.1 3.5-5.1 mmol/L Chloride Level 107 98-107 mmol/L Carbon Dioxide Level 24 21-32 mmol/L Anion Gap 6.0 3-11 mmol/L Blood Urea Nitrogen 12 7-18 mg/dl Creatinine 0.75 0.60-1.20 mg/dl Est Creatinine Clear Calc Drug Dose 131.3 ml/min Estimated GFR () 117.2 Estimated GFR (Non- 101.1 BUN/Creatinine Ratio 16.3 10-20 Random Glucose 86 70-99 mg/dl Calcium Level 8.8 8.5-10.1 mg/dl Total Bilirubin 0.3 0.2-1 mg/dl Direct Bilirubin < 0.1 0-0.2 mg/dl Aspartate Amino Transf (AST/SGOT) 20 15-37 U/L Alanine Aminotransferase (ALT/SGPT) 29 12-78 U/L Alkaline Phosphatase 54 45-117 U/L Total Protein 7.7 6.4-8.2 gm/dl Albumin 3.7 3.4-5.0 gm/dl Lipase 155 73-393 U/L Urine Color YELLOW Urine Appearance CLOUDY CLEAR Urine pH 5.5 4.5-7.5 Urine Specific [place] 1.022 1.000-1.030 Urine Protein NEG NEG Urine Glucose (UA) NEG NEG Urine Ketones TRACE NEG Urine Occult Blood NEG NEG Urine Nitrite NEG NEG Urine Bilirubin NEG NEG Urine Urobilinogen NEG NEG Urine Leukocyte Esterase TRACE NEG Urine WBC (Auto) 5-10 0-5 /hpf Urine RBC (Auto) 0-4 0-4 /hpf Urine Hyaline Casts (Auto) 1-5 0-5 /lpf Urine Epithelial Cells (Auto) >30 0-5 /lpf Urine Bacteria (Auto) NEG NEG Noncontrast abdominal/pelvic CT: Was reviewed by myself and read by the radiologist showing no acute intra-abdominal pathology. With no signs of ureteral calculi, normal-appearing pancreas, normal-appearing gallbladder and normal-appearing appendix. Patient was hydrated with normal saline, and she received 30 mg of Toradol IV for pain. Patient was reassessed multiple times during her stay in the emergency department; after she received her Toradol she reports she had mild relief of her discomfort. Patient was educated about today's findings and instructed on her treatment plan ; she verbalized understanding and agreement with this plan. Clinical Impression: Left thoracic back pain. Decision-Making: Initially my differential diagnosis I considered kidney stone, pyelonephritis, pancreatitis, hepatitis, bowel obstruction, constipation, acute appendicitis and other causes. Disposition: Patient discharged home in stable condition; prior to departure she was reassessed and subjectively reported she was feeling the same and rated her discomfort 5/10. Plan: Patient was encouraged alternate Toradol and acetaminophen every 3 hours as needed for pain. Patient was encouraged to use ice over areas of pain 5-6 times a day for 20-30 minutes. Proper lifting and moving techniques were discussed with the patient. Patient is encouraged to follow-up with family physician for recheck. Patient was encouraged return the ED for worsening/uncontrolled pain, fevers, worsening abdominal pain, nausea/vomiting or any new/concerning symptoms.
== END 2017-11-16 13:29 | disposition home or self-care (01) ==
LOC: C.EDB 10:48 → C.EDC 13:29
DX: M54.6 Pain in thoracic spine (principal); Z91.040 Latex allergy status; J45.909 Unspecified asthma, uncomplicated; M79.7 Fibromyalgia

== ENCOUNTER → 2017-11-28 | Outpatient (CLI) | payer OTHER ==
[~2017-11-28] MED LIST changes: -CYM/30 PO; +DULO60CA44 PO
--- NOTE | 2017-11-28 07:25 | DIAGNOSTIC IMAGING REPORT ---
BILIARY ULTRASOUND CLINICAL HISTORY: R10.11 abdominal pain COMPARISON STUDY: CT scan dated 11/16/2017, FINDINGS: The pancreas appears sonographically normal. No gallstones are visualized. There is an echogenic nonshadowing nonmobile lesion within the gallbladder consistent with a small polyp. There is no ductal dilatation. The common bile duct measures 5 mm. No focal hepatic masses are visualized. There is borderline increased hepatic echogenicity.. IMPRESSION: 1. Tiny gallbladder polyp. No calculi identified 2. No evidence of ductal dilatation 3. No hepatic masses. Ultrasonographically normal pancreas 4. Equivocal slight increase in hepatic echogenicity Electronically signed by: Imtiaz Rogers M.D. 11/28/2017 7:24 AM Dictated Date/Time: 11/28/2017 7:22 AM
== END | disposition home or self-care (01) ==
LOC: C.ULTR 06:42
PROVIDERS: ATTEND Nurse Practitioner Family
DX: R10.11 Right upper quadrant pain (principal)

== ENCOUNTER → 2017-12-12 | Outpatient (CLI) | payer OTHER ==
[~2017-12-12] MED LIST changes: +SINCALIDE INJ 2.2 MCG in SODIUM CHLORIDE 0.9% 100ML 100 ML IV SCH
--- NOTE | 2017-12-12 12:51 | DIAGNOSTIC IMAGING REPORT ---
NUCLEAR MEDICINE HEPATOBILIARY SCAN WITH EJECTION FRACTION HISTORY: R10.11 RIGHT UPPER QUADRANT PAIN,R11.0 NAUSEA COMPARISON: Abdominal ultrasound 11/28/2017. TECHNIQUE: Immediately following the intravenous administration of 5.8 mCi Tc-99m Choletec, dynamic anterior abdominal imaging pre/post 2.2 mcg of Kinevac was performed. FINDINGS: Uniform hepatic tracer accumulation is shown. Prompt intrahepatic biliary excretion is seen. The gallbladder, common bile duct, and small bowel are all visualized by 31 minutes. This appearance represents the normal sequence of biliary excretion. The gall bladder ejection fraction following administration of Kinevac was 99% (normal >35%). IMPRESSION: 1. No evidence for cystic duct obstruction. 2. Gallbladder ejection fraction calculated to be 99 %. Electronically signed by: Luis A Juarez M.D. 12/12/2017 12:50 PM Dictated Date/Time: 12/12/2017 12:44 PM
== END | disposition home or self-care (01) ==
LOC: C.NUCL 10:13
PROVIDERS: ATTEND Nurse Practitioner Family
DX: R10.11 Right upper quadrant pain (principal); R11.0 Nausea

== ENCOUNTER → 2018-01-03 | Day surgery (SDC) | payer OTHER ==
[2018-01-02 10:43] VITALS: Ht 167.6 cm; Wt 113.6 kg
[~2018-01-03] VITALS: Ht 167.6 cm; Wt 113.6 kg
[~2018-01-03] MED LIST changes: +ATROPINE SULFATE 0.1 MG/ML 5ML SYR IV PRN; +EpHEDrine SULFATE INJ 50 MG/ML AMP IV PRN; +FENTANYL CITRATE INJ 50 MCG/1 ML 2 ML VIAL ONE; +LIDOCAINE HCL 2% 2 ML VIAL (20MG/ML) ONE; +PROPOFOL IV EMULSION 10 MG/ML 20 ML VIAL ONE; -SINCALIDE INJ 2.2 MCG in SODIUM CHLORIDE 0.9% 100ML 100 ML IV SCH; +SODIUM CHLORIDE 0.9% 500ML 500 ML IV ONE
--- NOTE | 2018-01-03 15:34 | Endo History and Physical ---
History & Physical Date of Service: January 03, 2018. Chief Complaint: RUQ abdominal pain Referring Physician: Dr. Va De Paz History of Present Illness ruq pain Past Medical History Asthma, Anxiety, Depression Past Surgical History Hx Cardiac Surgery: No Hx Internal Defibrillator: No Hx Pacemaker: No Hx Abdominal Surgery: Yes (SURAJ, OVARIAN CYST REMOVED) Hx of Implantable Prosthesis: No Hx Post-Op Nausea and Vomiting: No Hx Cancer Surgery: No Hx Thoracic Surgery: No Hx Orthopedic: Yes (LEFT WRIST GANGLION CYST EXC.; RIGHT KNEE ARTHROSCOPY) Hx Urinary Tract Surgery: No Family History None Social History Smoking Status: Never Smoker Hx Substance Use: No Hx Alcohol Use: Yes (OCCASSIONALLY) Allergies Coded Allergies: Dust (Verified Allergy, Intermediate, ITCHY EYES, RUNNY NOSE, SNEEZING, 01/02/18) POLLEN (Verified Allergy, Intermediate, ITCHY EYES, RUNNY NOSE, SNEEZING, 01/02/18) Gluten (Verified Allergy, Unknown, SENSITIVE -- STILL ABLE TO EAT, 01/02/18) Latex1 -Allergic Contact Dermititis (Verified Allergy, Unknown, RASH, ) NO KNOWN DRUG ALLERGIES (Verified Allergy, Unknown, ., 01/02/18) Dairy (Verified Adverse Reaction, Unknown, INTOLERANCE -- STILL ABLE TO EAT, 01/02/18) Current Medications Reported Home Medications Medications Dose Route/Sig Max Daily Dose Days Date Category Dose Instructions Cymbalta (Duloxetine Hcl) 60 Mg Cap 60 Mg PO QAM 11/16/17 Reported Vitamin D3 (Cholecalciferol) 2,000 Unit Tab 2,000 Mg PO QAM 08/11/17 Reported Vitamin D 34054 Unit (Ergocalciferol) 50,000 Unit Cap 50,000 Unit PO WK 08/11/17 Reported TAKES EVERY SAT. Vital Signs Weight (Kilograms): 113.64 Height (Feet): 5 Height (Inches): 6 Date Time Temp Pulse Resp B/P (MAP) Pulse Ox O2 Delivery O2 Flow Rate FiO2 01/03/18 14:14 36.8 89 16 130/89 (103) 95 Room Air Physical Exam General Appearance: WD/WN, no apparent distress Respiratory/Chest: Auscultation: breath sounds normal Cardiovascular: Heart Auscultation: RRR Abdomen: Bowel Sounds: normal Inspection & Palpation: soft, non-distended, no tenderness, guarding & rebound EGd Assessment and Plan EGD
--- NOTE | 2018-01-03 15:57 | Anesthesiology Progress Note ---
Anesthesia Post Op Note Date & Time January 03, 2018 at 15:57 Vital Signs Pain Intensity: 0 Vital Signs Past 12 Hours Date Time Temp Pulse Resp B/P (MAP) Pulse Ox O2 Delivery O2 Flow Rate FiO2 01/03/18 14:14 36.8 89 16 130/89 (103) 95 Room Air Notes Mental Status: alert / awake / arousable, participated in evaluation Pt Amnestic to Procedure: Yes Nausea / Vomiting: adequately controlled Pain: adequately controlled Airway Patency, RR, SpO2: stable & adequate BP & HR: stable & adequate Hydration State: stable & adequate Anesthetic Complications: no major complications apparent
--- NOTE | 2018-01-03 16:24 | Discharge Instructions ---
Endoscopy Patient Instructions Date / Procedure(s) Performed January 03, 2018. EGD Allergy Information Coded Allergies: Dust (Verified Allergy, Intermediate, ITCHY EYES, RUNNY NOSE, SNEEZING, 01/02/18) POLLEN (Verified Allergy, Intermediate, ITCHY EYES, RUNNY NOSE, SNEEZING, 01/02/18) Gluten (Verified Allergy, Unknown, SENSITIVE -- STILL ABLE TO EAT, 01/02/18) Latex1 -Allergic Contact Dermititis (Verified Allergy, Unknown, RASH, ) NO KNOWN DRUG ALLERGIES (Verified Allergy, Unknown, ., 01/02/18) Dairy (Verified Adverse Reaction, Unknown, INTOLERANCE -- STILL ABLE TO EAT, 01/02/18) Discharge Date / Findings January 03, 2018. gastritis and duodenitis; biopsied Medication Instructions Stopped Medication(s): Vitamin D Restart Stopped Medication(s): Reported Home Medications Medications Dose Route/Sig Max Daily Dose Days Date Category Dose Instructions Cymbalta (Duloxetine Hcl) 60 Mg Cap 60 Mg PO QAM 11/16/17 Reported Vitamin D3 (Cholecalciferol) 2,000 Unit Tab 2,000 Mg PO QAM 08/11/17 Reported Vitamin D 34052 Unit (Ergocalciferol) 50,000 Unit Cap 50,000 Unit PO WK 08/11/17 Reported TAKES EVERY SAT. Prilosec 40mg daily 1/2 hour before breakfast Reported Home Medications Medications Dose Route/Sig Max Daily Dose Days Date Category Dose Instructions Cymbalta (Duloxetine Hcl) 60 Mg Cap 60 Mg PO QAM 11/16/17 Reported Vitamin D3 (Cholecalciferol) 2,000 Unit Tab 2,000 Mg PO QAM 08/11/17 Reported Vitamin D 69489 Unit (Ergocalciferol) 50,000 Unit Cap 50,000 Unit PO WK 08/11/17 Reported TAKES EVERY SAT. Prilosec 40mg daily 1/2 Hr before breakfast Provider Instructions Activity Restrictions - No exercising or heavy lifting for 24 hours. - Do not drink alcohol the day of the procedure. - Do not drive a car or operate machinery until the day after the procedure. - Do not make any important decisions or sign important papers in 24 hours after the procedure. Following Day: - Return to full activity which may include returning to work/school. Diet Start your diet with liquids and light foods (jello, soup, juice, toast). Then eat your usual diet if not nauseated. Treatment For Common After Affects For mild abdominal pain, bloating, or excessive gas: - Rest - Eat lightly - Lie on right side Follow-Up Information Follow-up with Dr. Va De Paz as scheduled Anesthesia Information What You Should Know You have had a procedure that required some medicine to reduce anxiety and discomfort. This treatment is called moderate sedation. After receiving the treatment, you may be sleepy, but you will be able to breathe on your own. The effects of the treatment may last for several hours. Follow these instructions along with Activity/Diet recommendations noted above: * Do NOT do anything where dizziness or clumsiness would be dangerous. * Rest quietly at home today, then you can be up and about tomorrow. * Have a responsible person stay with you the rest of today. * You may have had an I.V. today. If so, you may take the dressing off later today. Recommendations Call your doctor if: * Trouble breathing * Continuous vomiting for more than 24 hours * Temperature above 101 degrees * Severe abdominal pain or bloating * Pain not relieved by pain medicine ordered * There is increased drainage or redness from any incision * A large amount of rectal bleeding greater than 2-3 tablespoons. (If you had a polyp/s removed or have hemorrhoids, a small amount of blood - from the rectum is to be expected.) * You have any unanswered questions or concerns. IN THE EVENT OF A SERIOUS EMERGENCY, GO TO THE NEAREST EMERGENCY ROOM Your discharge instructions were prepared by provider Malik Arenas. Patient Instructions Signature Page Sofi Read Patient (or Guardian) Signature/Date: I have read and understand the instructions given to me by my caregivers. Caregiver/RN/Doctor Signature/Date: The above-named patient and/or guardian has received patient instructions on this date. + Original Patient Signature Page (only) stays with chart. Please make copy for patient.
[2018-01-03 16:28] VITALS: BP 126/89; PULSE 84; O2SAT 98
--- NOTE | 2018-01-03 17:03 | GI REPORT ---
Patient Name: Sofi Desouza Procedure Date: 01/03/2018 3:32 PM Date of : 1980 Admit Type: Outpatient Age: 37 Gender: Female Attending MD: Malik Arenas MD Procedure: Upper GI endoscopy Providers: Malik Arenas MD Referring MD: Shavon Romero Indications: Epigastric abdominal pain, Abdominal pain in the right upper quadrant Medicines: Propofol per Anesthesia Complications: No immediate complications. Estimated blood loss: Minimal. Estimated Blood Loss: Estimated blood loss was minimal. Estimated blood loss was minimal. Procedure: Pre-Anesthesia Assessment: - Prior to the procedure, a History and Physical was performed, and patient medications and allergies were reviewed. The patient's tolerance of previous anesthesia was also reviewed. The risks and benefits of the procedure and the sedation options and risks were discussed with the patient. All questions were answered, and informed consent was obtained. Prior Anticoagulants: The patient has taken no previous anticoagulant or antiplatelet agents. ASA Grade Assessment: II - A patient with mild systemic disease. After reviewing the risks and benefits, the patient was deemed in satisfactory condition to undergo the procedure. After obtaining informed consent, the endoscope was passed under direct vision. Throughout the procedure, the patient's blood pressure, pulse, and oxygen saturations were monitored continuously. The Scope was introduced through the mouth, and advanced to the third part of duodenum. The upper GI endoscopy was accomplished without difficulty. The patient tolerated the procedure well. Findings: The examined esophagus was normal. The Z-line was regular and was found 38 cm from the incisors. Patchy moderate inflammation characterized by erosions was found in the gastric body and in the gastric antrum. Biopsies were taken with a cold forceps for histology. Verification of patient identification for the specimen was done by the physician and survey cad technician using the patient's name and medical record number. Patchy mild inflammation characterized by erythema was found in the duodenal bulb. Patchy mild mucosal changes characterized by congestion, granularity and inflammation were found in the second portion of the duodenum. Biopsies were taken with a cold forceps for histology. Estimated blood loss was minimal. Verification of patient identification for the specimen was done by the physician and survey cad technician using the patient's name and medical record number. The cardia and gastric fundus were normal on retroflexion. Retained gastric contents are not identified on this exam. Impression: - Normal esophagus. - Z-line regular, 38 cm from the incisors. - Gastritis. Biopsied. - Duodenitis. - Mucosal changes in the duodenum. Biopsied. Recommendation: - Discharge patient to home (ambulatory). - Resume regular diet. - Continue present medications. - Await pathology results. - Use Prilosec (omeprazole) 40 mg PO daily for 4 months. - Return to referring physician as previously scheduled. MD Malik Mahmood MD 01/03/2018 5:03:30 PM This report has been signed electronically. Note Initiated On: 01/03/2018 3:32 PM Number of Addenda: 0 I attest to the content of the Intraoperative Record and orders documented therein, exceptions below {[id number]}
== END | disposition home or self-care (01) ==
LOC: C.GI 13:48
PROVIDERS: ATTEND Internal Medicine Gastroenterology
DX: K29.50 Unspecified chronic gastritis without bleeding (principal); K29.80 Duodenitis without bleeding; J45.909 Unspecified asthma, uncomplicated; F41.9 Anxiety disorder, unspecified; F32.9 Major depressive disorder, single episode, unspecified; Z91.040 Latex allergy status; Z91.011 Allergy to milk products; E66.9 Obesity, unspecified; Z68.41 Body mass index [BMI] 40.0-44.9, adult; Z90.89 Acquired absence of other organs

== ENCOUNTER → 2018-03-26 | Outpatient (CLI) | payer OTHER ==
[~2018-03-26] MED LIST changes: +ACET-1256 PO; -ATROPINE SULFATE 0.1 MG/ML 5ML SYR IV PRN; -EpHEDrine SULFATE INJ 50 MG/ML AMP IV PRN; -FENTANYL CITRATE INJ 50 MCG/1 ML 2 ML VIAL ONE; +IBUP-103 PO; -LIDOCAINE HCL 2% 2 ML VIAL (20MG/ML) ONE; +OXYC-57 PO; +PHEN-876 PO; +PRLSR20 PO; -PROPOFOL IV EMULSION 10 MG/ML 20 ML VIAL ONE; -SODIUM CHLORIDE 0.9% 500ML 500 ML IV ONE; +VNTHFA/IN INH
[2018-03-26 18:49] LABS: BLOOD UREA NITROGEN 11 mg/dl (7-18); CALCIUM 8.8 mg/dl (8.5-10.1); CARBON DIOXIDE 28 mmol/L (21-32); CREATININE 0.89 mg/dl (0.60-1.20); GLUCOSE 84 mg/dl (70-99); POTASSIUM 3.5 mmol/L (3.5-5.1); SODIUM 138 mmol/L (136-145)
== END | disposition home or self-care (01) ==
LOC: C.LAB 17:15
PROVIDERS: ATTEND Student in an Organized Health Care Education/Training Program
DX: R10.9 Unspecified abdominal pain (principal); R31.9 Hematuria, unspecified

== ENCOUNTER → 2018-03-28 | Outpatient (CLI) | payer OTHER ==
--- NOTE | 2018-03-28 07:33 | DIAGNOSTIC IMAGING REPORT ---
ULTRASOUND KIDNEYS AND BLADDER CLINICAL HISTORY: Left flank pain. COMPARISON STUDY: Abdominal CT dated 11/16/2017. TECHNIQUE: Real-time, grayscale, and color flow sonography of the kidneys and bladder is performed. Images are reviewed in the transverse and longitudinal planes. FINDINGS: Kidneys: The kidneys are normal in size and echotexture. The right kidney measures 11.5 cm in length and the left kidney measures 11.1 cm in length. There is no hydronephrosis. No shadowing renal calculi are identified. There is no sonographic evidence of contour deforming renal mass lesion. No perinephric fluid is identified. Bladder: The bladder is decompressed and not well assessed. Only a left ureteral jet was seen. Upper abdomen: Survey images of the liver show evidence of hepatic steatosis. The spleen is normal in size measuring 8.6 cm. IMPRESSION: 1. Unremarkable sonographic assessment of the kidneys. 2. The bladder was decompressed and not well assessed. 3. Hepatic steatosis. Electronically signed by: Gilbert Torres M.D. 03/28/2018 7:31 AM Dictated Date/Time: 03/28/2018 7:30 AM
== END | disposition home or self-care (01) ==
LOC: C.ULTR 06:26
PROVIDERS: ATTEND Student in an Organized Health Care Education/Training Program
DX: R10.9 Unspecified abdominal pain (principal)

== ENCOUNTER 2018-04-11 20:56 | Emergency (ER) | payer BC, OTHER ==
[~2018-04-11] VITALS: Ht 167.6 cm; Wt 117.0 kg
[2018-04-11 21:05] VITALS: TEMP 36.6; Ht 167.6 cm; Wt 117.0 kg
[2018-04-11] MEDS ORDERED: OPTIRAY 320 IV PRN (22:30)
--- NOTE | 2018-04-11 22:39 | DIAGNOSTIC IMAGING REPORT ---
CHEST ONE VIEW PORTABLE CLINICAL HISTORY: Abdominal pain. COMPARISON STUDY: Chest radiograph September 07, 2017. FINDINGS: Lung volumes are at the lower limits of normal. There is no pneumothorax or pleural effusion. There is no consolidation or evidence for pulmonary edema. Cardiac size is normal. Mediastinal contours are normal. IMPRESSION: No acute cardiopulmonary findings. Electronically signed by: Jonny Garcia M.D. 04/11/2018 10:38 PM Dictated Date/Time: 04/11/2018 10:37 PM
[2018-04-11 23:11] LABS: BASO ABS # 0.09 K/uL (0-0.2); EOS % 5.1 %; EOS ABS # 0.48 K/uL (0-0.5); HEMATOCRIT 42.3 % (37-47); HEMOGLOBIN 14.2 g/dL (12.0-16.0); IG# 0.03 K/uL (0.00-0.02); LYMPH % 33.5 %; LYMPH ABS # 3.15 K/uL (1.2-3.4); MEAN CELL VOLUME 88.1 fL (80-100); MEAN CORPUSCULAR HEMOGLOBIN 29.6 pg (25-34); MEAN CORPUSCULAR HGB CONC 33.6 g/dl (32-36); MONO % 11.3 %; MONO ABS # 1.06 K/uL (0.11-0.59); NEUT % 48.8 %; NEUT ABS # 4.58 K/uL (1.4-6.5); PLATELET COUNT 284 K/uL (130-400); RED CELL DISTRIBUTION WIDTH CV 13.7 % (11.5-14.5); RED CELL DISTRIBUTION WIDTH SD 44.8 fL (36.4-46.3); WHITE BLOOD COUNT 9.39 K/uL (4.8-10.8)
[2018-04-11 23:24] LABS: PTT PATIENT 25.6 SECONDS (21.0-31.0)
[2018-04-11 23:39] LABS: ALBUMIN 3.8 gm/dl (3.4-5.0); CALCIUM 8.8 mg/dl (8.5-10.1); CREATININE 0.97 mg/dl (0.60-1.20); POTASSIUM 3.8 mmol/L (3.5-5.1); TOTAL PROTEIN 7.6 gm/dl (6.4-8.2)
[2018-04-12 00:37] VITALS: BP 110/70; PULSE 75; O2SAT 97
--- NOTE | 2018-04-12 00:43 | EMERGENCY ROOM VISIT NOTE ---
History Report prepared by Rogelio: Jair Avendaño Under the Supervision of: Dr. Gilbert Sullivan M.D. First contact with patient: 22:10 Chief Complaint: SWELLING TO EXTREMITY Stated Complaint: SWOLLEN LEG, ANKLES,FEET, MIGRAINE, PAIN, FEVER History of Present Illness The patient is a 37 year old female who presents to the Emergency Room with complaints of worsening swollen legs and ankles over the last few weeks along with left sided abdominal and flank pain. She states that she has no SOB, but does have nausea, chills, more frequent epistaxis, easy bruising and she constantly feels fatigued. The patient reports that she received a cholecystectomy 3 months ago and then developed a UTI. She reports that she has finished her Levaquin course. She also reports having an ultrasound done because of more frequent left sided flank pain but it did not reveal anything but a fatty liver. She denies a history of kidney or thyroid problems. However, she does have a history of Lyme disease and mononucleosis Source of History: patient Onset: Over the last few weeks Position: back (Flank pain), leg (Swelling) Timing: worsening Associated Symptoms: + chills, + nausea, + abdominal pain, + fatigue, No SOB Review of Systems See HPI for pertinent positives & negatives. A total of 10 systems reviewed and were otherwise negative. Past Medical & Surgical Medical Problems: (1) Migraines Surgical Problems: (1) History of cholecystectomy Family History No pertinent family history Social History Smoking Status: Never Smoker Alcohol Use: occasionally Drug Use: none Marital Status: single Housing Status: lives with family Occupation Status: employed Current/Historical Medications Scheduled Cholecalciferol (Vitamin D3), 2,000 MG PO QAM Duloxetine Hcl (Cymbalta), 60 MG PO QPM Ergocalciferol (Vitamin D 77976 Unit), 50,000 UNIT PO WK Omeprazole (Prilosec), 40 MG PO QAM Scheduled PRN Acetaminophen (Tylenol), 1,000 MG PO Q6 PRN for Pain or Fever Albuterol Hfa (Ventolin Hfa), 2 PUFFS INH Q6H PRN for SOB/Wheezing Ibuprofen Tab (Advil), 400 MG PO Q4 PRN for Pain Allergies Coded Allergies: Dust (Verified Allergy, Intermediate, ITCHY EYES, RUNNY NOSE, SNEEZING, ) POLLEN (Verified Allergy, Intermediate, ITCHY EYES, RUNNY NOSE, SNEEZING, 04/12/18) Dairy (Verified Allergy, Unknown, ANAPHYLAXIS, 04/12/18) Gluten (Verified Allergy, Unknown, SENSITIVE -- STILL ABLE TO EAT, 04/12/18 ) Latex1 -Allergic Contact Dermititis (Verified Allergy, Unknown, RASH, 04/12) NO KNOWN DRUG ALLERGIES (Verified Allergy, Unknown, ., 04/12/18) Physical Exam Vital Signs Date Time Temp Pulse Resp B/P (MAP) Pulse Ox O2 Delivery O2 Flow Rate FiO2 04/12/18 00:37 75 18 110/70 97 04/11/18 22:57 83 18 124/83 97 Room Air 04/11/18 21:05 36.6 85 20 143/84 97 Room Air Physical Exam GENERAL: Patient is in no acute distress. HEENT: No acute trauma, normocephalic atraumatic, mucous membranes moist, no nasal congestion, no scleral icterus. NECK: No stridor, no adenopathy, no meningismus, trachea is midline. LUNGS: Clear to auscultation bilaterally, no wheeze, no rhonchi, breath sounds equal. HEART: Without murmurs gallops or rubs, regular rate and rhythm. ABDOMEN: Soft, tender in both upper quadrants and epigastric regions, bowel sounds positive, no hernias, no peritonitis. BACK: Left flank discomfort with percussion. EXTREMITIES: No cyanosis, full range of motion of all the joints without pain or difficulty, no signs for acute trauma. Mild bilateral pedal edema. NEUROLOGIC: Oriented x 3, no acute motor or sensory deficits, no focal weakness. SKIN: No rash, no jaundice, no diaphoresis. Medical Decision & Procedures ER Provider Diagnostic Interpretation: Radiology results as stated below per my review and radiologist interpretation: CHEST ONE VIEW PORTABLE CLINICAL HISTORY: Abdominal pain. COMPARISON STUDY: Chest radiograph September 07, 2017. FINDINGS: Lung volumes are at the lower limits of normal. There is no pneumothorax or pleural effusion. There is no consolidation or evidence for pulmonary edema. Cardiac size is normal. Mediastinal contours are normal. IMPRESSION: No acute cardiopulmonary findings. Electronically signed by: Jonny Garcia M.D. 04/11/2018 10:38 PM Dictated Date/Time: 04/11/2018 10:37 PM US Venous Bilateral Lower Extremities No evidence of deep venous thrombosis Study read at 23:33 and initial results transmitted at 23:36 CT Abdomen & Pelvis With Contrast Status post cholecystectomy. No fluid collection. Nondilated CBD. No bowel obstruction. Normal appendix. Hysterectomy. No bowel wall thickening Radiologist: Pawan Soni MD Study read at 00:01 and initial results transmitted at 00:07 Laboratory Results 04/11/18 22:55 Red Blood Count 4.80, Mean Corpuscular Volume 88.1, Mean Corpuscular Hemoglobin 29.6, Mean Corpuscular Hemoglobin Concent 33.6, Mean Platelet Volume 10.0, Neutrophils (%) (Auto) 48.8, Lymphocytes (%) (Auto) 33.5, Monocytes (%) (Auto) 11.3, Eosinophils (%) (Auto) 5.1, Basophils (%) (Auto) 1.0, Neutrophils # (Auto ) 4.58, Lymphocytes # (Auto) 3.15, Monocytes # (Auto) 1.06, Eosinophils # (Auto ) 0.48, Basophils # (Auto) 0.09 04/11/18 22:55 Test 04/11/18 21:40 04/11/18 22:55 Urine Color YELLOW Urine Appearance CLEAR (CLEAR) Urine pH 6.5 (4.5-7.5) Urine Specific Grand Chain 1.013 (1.000-1.030) Urine Protein NEG (NEG) Urine Glucose (UA) NEG (NEG) Urine Ketones NEG (NEG) Urine Occult Blood NEG (NEG) Urine Nitrite NEG (NEG) Urine Bilirubin NEG (NEG) Urine Urobilinogen NEG (NEG) Urine Leukocyte Esterase NEG (NEG) White Blood Count 9.39 K/uL (4.8-10.8) Red Blood Count 4.80 M/uL (4.2-5.4) Hemoglobin 14.2 g/dL (12.0-16.0) Hematocrit 42.3 % (37-47) Mean Corpuscular Volume 88.1 fL (80-100) Mean Corpuscular Hemoglobin 29.6 pg (25-34) Mean Corpuscular Hemoglobin Concent 33.6 g/dl (32-36) Platelet Count 284 K/uL (130-400) Mean Platelet Volume 10.0 fL (7.4-10.4) Neutrophils (%) (Auto) 48.8 % Lymphocytes (%) (Auto) 33.5 % Monocytes (%) (Auto) 11.3 % Eosinophils (%) (Auto) 5.1 % Basophils (%) (Auto) 1.0 % Neutrophils # (Auto) 4.58 K/uL (1.4-6.5) Lymphocytes # (Auto) 3.15 K/uL (1.2-3.4) Monocytes # (Auto) 1.06 K/uL (0.11-0.59) Eosinophils # (Auto) 0.48 K/uL (0-0.5) Basophils # (Auto) 0.09 K/uL (0-0.2) RDW Standard Deviation 44.8 fL (36.4-46.3) RDW Coefficient of Variation 13.7 % (11.5-14.5) Immature Granulocyte % (Auto) 0.3 % Immature Granulocyte # (Auto) 0.03 K/uL (0.00-0.02) Erythrocyte Sedimentation Rate 16 mm/hr (0-21) Prothrombin Time 10.0 SECONDS (9.0-12.0) Prothromb Time International Ratio 1.0 (0.9-1.1) Activated Partial Thromboplast Time 25.6 SECONDS (21.0-31.0) Partial Thromboplastin Ratio 1.0 Anion Gap 8.0 mmol/L (3-11) Est Creatinine Clear Calc Drug Dose 102.2 ml/min Estimated GFR () 85.9 Estimated GFR (Non- 74.1 BUN/Creatinine Ratio 9.5 (10-20) Calcium Level 8.8 mg/dl (8.5-10.1) Magnesium Level 2.1 mg/dl (1.8-2.4) Total Bilirubin 0.4 mg/dl (0.2-1) Aspartate Amino Transf (AST/SGOT) 32 U/L (15-37) Alanine Aminotransferase (ALT/SGPT) 47 U/L (12-78) Alkaline Phosphatase 57 U/L (45-117) Total Protein 7.6 gm/dl (6.4-8.2) Albumin 3.8 gm/dl (3.4-5.0) Globulin 3.8 gm/dl (2.5-4.0) Albumin/Globulin Ratio 1.0 (0.9-2) Lipase 319 U/L (73-393) Thyroid Stimulating Hormone (TSH) 2.030 uIu/ml (0.300-4.500) Laboratory results reviewed by me. ED Course 2211: The patient was evaluated in room C12. A complete history and physical exam was performed. 0019: I reevaluated the patient, she is stable. 0034: Reevaluated the patient. Discussed results and discharge instructions: She verbalized understanding and agreement. The patient is ready for discharge. Medical Decision Differential Diagnosis Post-surgical infection, thyroid disorder, anemia, renal failure, UTI, pyelonephritis, DVT, electrolyte imbalance There is no leukocytosis or concerning anemia. Platelet count was normal. Sed rate is not elevated. There is no coagulopathy. No significant electrolyte abnormality, kidney failure, hepatitis or pancreatitis. The patient appears to be in a euthyroid state. Urinalysis does not show infection or hematuria. Chest film does not show pneumonia, mediastinal widening or pneumothorax. Lower extremity ultrasound does not show a DVT in either the right or left leg. Abdominal and pelvis CT does not show evidence for a post surgical infection, there is no bowel obstruction, the appendix is normal, no hydronephrosis. Patient presents with leg swelling, some fatigue, some upper abdominal pain. She was concerned that this was all related to her recent cholecystectomy. Patient's workup is benign and reassuring. Patient is being discharged back to her family doctor's office. At this point, I do not think we need to prescribe any medications. If things are worsening, she can return. She will avoid salt in her diet. She will try to keep her legs elevated. She was discharged home in stable condition. Medication Reconcilliation Current Medication List: was personally reviewed by me Blood Pressure Screening Patient's blood pressure: Normal blood pressure Impression Primary Impression: Pedal edema Additional Impressions: Weakness Fatigue Pain of upper abdomen Scribe Attestation The scribe's documentation has been prepared under my direction and personally reviewed by me in its entirety. I confirm that the note above accurately reflects all work, treatment, procedures, and medical decision making performed by me. Departure Information Dispostion Home / Self-Care Referrals Olga De Paz (PCP) Forms HOME CARE DOCUMENTATION FORM, IMPORTANT VISIT INFORMATION, WORK / SCHOOL INSTRUCTIONS Patient Instructions My [facility] Problem Qualifiers
--- NOTE | 2018-04-12 06:55 | DIAGNOSTIC IMAGING REPORT ---
VENOUS DOPPLER LWR EXT BILA CLINICAL HISTORY: 37 years-old Female presenting with swelling, poss dvt. TECHNIQUE: Real-time grayscale and color and spectral Doppler ultrasound imaging of the veins of the bilateral lower extremities was performed. Compression and augmentation were also utilized. COMPARISON: None. FINDINGS: RIGHT: Common femoral vein: Patent. Greater saphenous vein: Patent. Deep femoral vein: Patent. Femoral vein: Patent. Popliteal vein: Patent. Calf veins: Patent. LEFT: Common femoral vein: Patent. Greater saphenous vein: Patent. Deep femoral vein: Patent. Femoral vein: Patent. Popliteal vein: Patent. Calf veins: Patent. Other: None. IMPRESSION: No evidence of deep venous thrombosis. Electronically signed by: Clem Melvin M.D. 04/12/2018 6:54 AM Dictated Date/Time: 04/12/2018 6:53 AM
--- NOTE | 2018-04-12 07:00 | DIAGNOSTIC IMAGING REPORT ---
ABD/PELVIS IV CONTRAST ONLY CT DOSE: 1413.96 mGy.cm HISTORY: Pain ABD PAIN, POSS infect--gb surg, IV CONTRAST ONLY TECHNIQUE: Multiaxial CT images of the abdomen and pelvis were performed following the use of intravenous contrast. A dose lowering technique was utilized adhering to the principles of ALARA. COMPARISON STUDY: 11/16/2017 FINDINGS: Lung bases are clear. The liver spleen and pancreas are unremarkable. Cholecystectomy. Kidneys enhance uniformly. No evidence for hydronephrosis. The abdominal and pelvic bowel pattern is nonobstructive. There is a 2 cm right ovarian cyst. There has been a partial hysterectomy. IMPRESSION: 1. 2 cm right ovarian cyst. 2. Otherwise negative study post cholecystectomy and partial hysterectomy. The above report was generated using voice recognition software. It may contain grammatical, syntax or spelling errors. Electronically signed by: Hank Parry M.D. 04/12/2018 6:59 AM Dictated Date/Time: 04/12/2018 6:58 AM
== END 2018-04-12 00:38 | disposition home or self-care (01) ==
LOC: C.EDB 20:57 → C.EDC 04-12 00:38
DX: R60.9 Edema, unspecified (principal); R53.1 Weakness; R53.83 Other fatigue; R10.10 Upper abdominal pain, unspecified; Z79.899 Other long term (current) drug therapy; Z91.011 Allergy to milk products; Z91.018 Allergy to other foods; Z91.048 Other nonmedicinal substance allergy status; Z91.040 Latex allergy status

== ENCOUNTER → 2018-04-17 | Outpatient (CLI) | payer BC, OTHER ==
[~2018-04-17] MED LIST changes: -OXYC-57 PO; -PHEN-876 PO
--- NOTE | 2018-04-17 14:15 | DIAGNOSTIC IMAGING REPORT ---
EXAMINATION: PELVIC ULTRASOUND (transabdominal and endovaginal scanning) CLINICAL HISTORY: Pelvic pain COMPARISON STUDY: CT scan dated 04/11/2018 FINDINGS: The uterus is surgically absent. The right ovary measured 36 x 25 x 24 mm. There is a 2 cm right ovarian follicle.. The left ovary measured 26 x 17 x 16 mm.. There is no ultrasonographic evidence of ovarian torsion. It should be noted that ovarian torsion can be present with normal Doppler ultrasonographic findings. There was no evidence of pathologic free pelvic fluid. IMPRESSION: 1. Surgically absent uterus 2. 2 cm right ovarian follicle Electronically signed by: Imtiaz Rogers M.D. 04/17/2018 2:14 PM Dictated Date/Time: 04/17/2018 2:13 PM
== END | disposition home or self-care (01) ==
LOC: C.ULTR 13:25
PROVIDERS: ATTEND Family Medicine
DX: R30.0 Dysuria (principal); R10.2 Pelvic and perineal pain